=== PATIENT | male | born 1950 | race Two or more races ===

== ENCOUNTER 2020-03-22 07:24 | Outpatient (CLI) | payer OTHER | END 2020-03-22 07:48 | disposition home or self-care (01) | LOC: LAB 07:24 | PROVIDERS: ATTEND Urology | DX: D68.8 Other specified coagulation defects (principal); N39.0 Urinary tract infection, site not specified; C67.9 Malignant neoplasm of bladder, unspecified; I10 Essential (primary) hypertension ==

== ENCOUNTER 2020-03-29 11:46 | Outpatient (CLI) | payer OTHER | END 2020-03-29 11:55 | disposition home or self-care (01) | LOC: LAB 11:46 | PROVIDERS: ATTEND Internal Medicine Geriatric Medicine | DX: E87.5 Hyperkalemia (principal) ==